=== PATIENT | female | born 1945 | race Caucasian/White ===

== ENCOUNTER → 2016-08-11 | Outpatient (CLI) | payer MEDICARE, OTHER ==
[~2016-08-11] MED LIST: ASPIRIN EC81 MG PO; CALTRATE 600 WI1 TAB PO; CENTRUM SILVER1 TAB PO; COLACE100 MG PO; ELIQUIS5 MG PO; GLUCOPHAGE1000 MG PO; IMDUR30 MG PO; IMURAN50 MG PO; IRON160 MG PO; LANTUS SOL100 UNIT/1 SUB-Q; LOPRESSOR100 MG PO; MAGNESIUM250 MG PO; NITROSTAT0.4 MG SL; NORCO 5-325 TA1 EACH PO; OXYGEN M-15 INH; PLAVIX75 MG PO; PRINIVIL (ZESTR20 MG PO; RANEXA1000 MG PO; TRADJENTA5 MG PO; TYLENOL EXTRA500 MG PO; VESICARE5 MG PO; VITAMIN C1000 MG PO; ZANTAC (NON-FO150 MG PO; ZOCOR20 MG PO; [UNRECOGNIZED DRUG - OTHER] PO
[2016-08-11 14:10] LABS: HEMATOCRIT 30.7 % (33.0-46.0); HEMOGLOBIN 9.5 g/dL (10.0-15.0); MCH 32.4 pg (27.0-34.0); MCHC 30.9 gm/dL (32.0-36.5); MCV 104.8 fl (83.0-98.0); MPV 9.1 fl (9.4-12.4); RBC 2.93 M/uL (3.50-5.50); RDW-CV 15.9 % (11.9-14.6); WBC 4.5 K/uL (4.0-11.0)
== END | disposition disaster alternative care site (69) ==
LOC: GOPD 08-10 14:00
PROVIDERS: Family Medicine
PROC: 0TB03ZX Excision of Right Kidney, Percutaneous Approach, Diagnostic (ICD-10-PCS; principal; 2016-08-11)
DX: C64.1 Malignant neoplasm of right kidney, except renal pelvis (principal); N28.89 Other specified disorders of kidney and ureter
CPT/HCPCS: J2001; J2250; J3010

== ENCOUNTER 2017-01-17 13:19 | Inpatient (IN) | payer MEDICARE, OTHER ==
[~2017-01-17] VITALS: Ht 167.6 cm; Wt 78.7 kg
--- NOTE | ~2017-01-17 | DS ---
PATIENT'S NAME: SABINA CHANG [facility] AGE: 71 Y [address] [place] [facility] [place] [address] LOCATION: [facility] [place] ADMIT DATE: 01/18/2017 Discharge Summary DISCHARGE DATE: 01/20/2017 FAMILY PHYSICIAN: Gabriel Campbell MD ATTENDING PHYSICIAN: Mercedes Boyd ADMISSION DIAGNOSES: 1. History of renal cell carcinoma, status post right laparoscopic nephrectomy. 2. Right paracaval mass. DISCHARGE DIAGNOSES: 1. History of renal cell carcinoma, status post right laparoscopic nephrectomy. 2. Right paracaval mass. PROCEDURES PERFORMED: Robotic-assisted laparoscopic excision of right paracaval mass. HOSPITAL COURSE: The patient was admitted on the above date, and underwent the above stated procedure without complication. She has a history of renal cell carcinoma, for which she underwent right hand assisted laparoscopic radical nephrectomy on November 08, 2016. On followup imaging, she was noted to have a paracaval mass with possible involvement of adrenal gland. Her hospital course was uneventful, and following surgery, her pain was well controlled and she was tolerating regular diet and having bowel function with flatus. FOLLOWUP PLAN: We will plan to see the patient back for a followup in Urology Clinic for postoperative visit, and now contact her once I have had a chance to review the results of her surgical pathology, which will guide her followup plan. MERCEDES BOYD MD GP/modl /[id number] d: 02/04/17 0409 t: 02/07/1706, DISCHARGE SUMMARY
--- NOTE | ~2017-01-17 | HP ---
PATIENT'S NAME: SABINA CHANG [facility] AGE: 71 Y [address] ROOM: [place] [address] LOCATION: [facility] [place] ADMIT DATE: 01/18/2017 History & Physical DISCHARGE DATE: FAMILY PHYSICIAN: RADHA MOSES MD ATTENDING PHYSICIAN: MERCEDES BOYD DATE OF SERVICE: 01/18/2017 CHIEF COMPLAINT AND REASON FOR ADMISSION: History of renal cell cancer with question of retained tissue with tumor remaining versus adrenal gland. HISTORY OF PRESENT ILLNESS: I saw, Sabina is a 71-year-old female in my outpatient clinic. Prior to admission at that time, she had what appeared to be UTI, so we put her on antibiotics and followup urine was checked yesterday and looked like her infection was improving and she felt better yesterday prior to admission. When I see her now, she is postop status at noon on 01/18/2017 and doing well. She is status post surgery as per Dr. Boyd, her urologist. MEDICATIONS: Reviewed. ALLERGIES: NOTED. SOCIAL HISTORY: Negative. FAMILY HISTORY: Noncontributory. IMMUNIZATIONS: Up-to-date. REVIEW OF SYSTEMS: Positive for chronic anemia, chronic colitis, chronic coronary artery disease status post recent redo bypass surgery, history of kidney cancer, diabetes mellitus type 2 and previous history of pulmonary embolus. PHYSICAL EXAMINATION: VITAL SIGNS: Per nurse's notes. Her blood pressure is 150/70 when I see, her O2 saturations normal with O2 supplement at 2 L. Her pulse is 90 and temperature is normal. HEENT: Benign. Her glasses are off. Her teeth are in good repair. PATIENT'S NAME: SABINA CHANG [facility] AGE: 71 Y [address] ROOM: [place] [address] LOCATION: [facility] [place] ADMIT DATE: 01/18/2017 History & Physical DISCHARGE DATE: FAMILY PHYSICIAN: RADHA MOSES MD ATTENDING PHYSICIAN: MERCEDES BOYD NECK: Unremarkable. HEART: She has a hyperdynamic heart exam with a grade 1/6 systolic ejection murmur heard at the right second intercostal space and apex. LUNGS: Clear anteriorly. BREASTS: Not done. ABDOMEN: Benign. Dressings present. PELVIC/RECTAL: Exam not done. EXTREMITIES: Remarkable, just a trace edema in her ankles. NEUROLOGIC: Intact. Cranial nerves intact. ASSESSMENT: 1. Residual? tumor at previous nephrectomy site left side with known diagnosis of renal cell cancer. 2. Known coronary artery disease status post coronary artery bypass graft, redo recently. 3. Colitis, stable and asymptomatic. 4. Diabetes mellitus type 2, stable. 5. Stable angina pectoris. 6. Recent urinary tract infection, treated. PLAN: We will follow daily. Further changes indicated. MD CHAZ BOURNE/christina /[id number] D: [id number] T: [id number] HISTORY & PHYSICAL
--- NOTE | ~2017-01-17 | OR ---
PATIENT'S NAME: SABINA CHANG [facility] AGE: 71 Y [address] ROOM: [place] [address] [place] [facility] [place]: 01/18/2017 OR/Procedure Report DISCHARGE DATE: FAMILY PHYSICIAN: RADHA CAMPBELL MD ATTENDING PHYSICIAN: MERCEDES BOYD SURGEON: Mercedes Boyd MD BUSINESS TEACHER: Dayron Gustafson MD. DATE OF PROCEDURE: 01/18/2017 PREOPERATIVE DIAGNOSES: 1. History of renal cell carcinoma, status post right laparoscopic nephrectomy. 2. Right paracaval mass. POSTOPERATIVE DIAGNOSES: 1. History of renal cell carcinoma, status post right laparoscopic nephrectomy. 2. Right paracaval mass. PROCEDURE: Robotic-assisted laparoscopic right excision of paracaval mass. HISTORY OF PRESENT ILLNESS: The patient is a pleasant 71-year-old female, with history of renal cell carcinoma, who underwent right hand assisted laparoscopic radical nephrectomy on November 08, 2016. On followup imaging, she was noted to have a paracaval mass with possible involvement of her right adrenal gland. The patient was explained the risks, benefits, indications, and alternatives to above procedure, wished to proceed and consented freely. ANESTHESIA ADMINISTERED: General endotracheal anesthesia. DESCRIPTION OF OPERATION: The patient was brought back to the operating room where she was placed on the OR table in the supine position. A surgical time- out was called where patient identification, surgical site, and procedure were then verified. We also did verify that the patient received IV cephalosporin antibiotic within an hour of beginning the procedure. The patient then underwent successful administration of general endotracheal anesthesia. The patient was then moved and placed in a modified right flank position. Her abdomen was then prepped and draped in usual sterile fashion. We had placed a 16-Syrian Brizuela catheter into the patient's urinary bladder and this was left to gravity drainage. I began by making a supraumbilical incision and the rectus fascia was then grasped and elevated, and then we used a Veress needle to carefully insufflate her abdomen to 15 mmHg. I then placed a 12 mm non- bladed trocar easily into the patient's abdomen. I then immediately passed a laparoscope and did not observe any injury to internal structure. She did have several adhesions noted of her ascending colon along her right lateral PATIENT'S NAME: SABINA CHANG [facility] AGE: 71 Y [address] ROOM: [id number] [place], [place] [address] [place] [facility] [place]: 01/18/2017 OR/Procedure Report DISCHARGE DATE: FAMILY PHYSICIAN: RADHA CAMPBELL MD ATTENDING PHYSICIAN: MERCEDES BOYD abdominal wall. There were otherwise no gross abnormalities noted. After taking several adhesions down following placement of a 5 mm senior agricultural assistant port just superior to my initial port site, I then placed the remaining ports including four 8 mm ports under direct visualization, which were used for the da Trevin Xi robotic device. I also placed one additional 5 mm trocar for the senior agricultural assistant. The da Trevin Xi robot was then docked and used for the remainder of the case. I began by mobilizing the ascending colon, which was swept medially. I then continued this dissection along her inferior vena cava and kocherized the duodenum. I would then begin elevating her liver, which was along her psoas muscle and this worked up the psoas muscle until I had completely freed up the liver. As we worked along this plane, along the inferior vena cava, I did come across the paracaval mass, which did appear to be involving her right adrenal gland. I then carefully identified several adrenal veins, which were taken with a laparoscopic stapling device. Several loads were used on the laparoscopic stapling device until we had completely divided all of the vasculature leading to this adrenal mass. I then continued the dissection superiorly the mass off from the liver until the mass was completely . The mass was then placed in an EndoCatch bag. I then inspected for hemostasis, which was adequate. I did place some FloSeal in the tumor resection bed. There was no evidence of any residual mass or tumor remaining. I then used a Gilberto-Raymond device to close one of the 8 mm port sites, which had been upsized to a 12 mm port to accommodate the da Trevin Xi laparoscopic stapling device. I then brought the specimen bag out through the other 12 mm port site just above her umbilicus and opened up the fascia to remove the specimen, which was sent for pathologic analysis. Her fascia was then closed using a running permanent suture. All incision sites were irrigated and infiltrated with Marcaine local anesthetic. Her skin incisions were closed using a subcuticular Monocryl suture and then covered with Dermabond. The patient was then taken out of the flank position and was then awoken from general anesthesia, where she was then extubated and transferred to recovery bed and transported to recovery room in good condition. COMPLICATIONS: None. ESTIMATED BLOOD LOSS: 100 mL. SPECIMENS: Right paracaval mass for pathologic analysis. DRAINS: Indwelling Brizuela catheter to gravity drainage. FOLLOWUP PLAN: We will plan to admit the patient overnight for observation with likely discharge home tomorrow on postoperative day #1 versus postoperative day #2 depending on her bowel function. PATIENT'S NAME: SAIBNA CHANG [facility] AGE: 71 Y [address] ROOM: [place] [address] [place] [facility] [place]: 01/18/2017 OR/Procedure Report DISCHARGE DATE: FAMILY PHYSICIAN: RADHA CAMPBELL MD ATTENDING PHYSICIAN: MERCEDES BOYD MERCEDES BOYD MD GP/modl /[id number] CC: Radha Campbell MD d: 01/18/17 2244 t: 01/20/17 1126, OPERATIVE SUMMARY
[~2017-01-17 13:19] MED LIST changes: -COLACE100 MG PO; -NORCO 5-325 TA1 EACH PO
[2017-01-18 10:35] LABS: HEMATOCRIT 32.8 % (33.0-46.0); HEMOGLOBIN 10.6 g/dL (10.0-15.0)
--- NOTE | 2017-01-18 15:33 | NUR ---
Diabetes center note: Provided the Diabetes Management booklet and Survival Skills Checklist. Encouraged patient to complete when she has time, had procedure done today, but will not know resultsfor about one week. We did discuss the affects os stress on blood sugar control, patient states understanding. Patient states she can't identify anything that she needs assistance with at this time, verbally reports her last A1C in November [address] [facility] [facility] was 5.16 %. Patient denies any difficulty obtaining her testing supplies and insulin supplies. She does report that she has lost a significant amount of weight since 2015. Will have CDE check with patient in a.m. to further assess any additional educational needs.
[2017-01-19 04:42] LABS: BASOPHIL % 0.1 %; EOSINOPHIL % 0.3 %; HEMATOCRIT 31.8 % (33.0-46.0); HEMOGLOBIN 10.2 g/dL (10.0-15.0); IMMATURE GRANULOCYTE % 0.3 %; LYMPHOCYTE % 13.6 %; MCH 32.7 pg (27.0-34.0); MCHC 32.1 gm/dL (32.0-36.5); MCV 101.9 fl (83.0-98.0); MONOCYTE # 0.4 K/uL (0.0-1.0); MONOCYTE % 6.3 %; MPV 8.9 fl (9.4-12.4); NEUTROPHIL # (ANC) 5.5 K/uL (1.8-7.8); NEUTROPHIL % 79.4 %; NRBC % 0 /100WBC (0-0.00); PLATELET COUNT 218 K/uL (150-450); RBC 3.12 M/uL (3.50-5.50); RDW-CV 17.2 % (11.9-14.6)
[2017-01-19 04:56] LABS: ANION GAP 11.1 (10.0-19.0); CALCIUM 8.5 mg/dL (8.5-10.5); CREATININE 1.3 mg/dL (0.5-1.1); POTASSIUM 4.1 mMol/L (3.7-5.1)
--- NOTE | 2017-01-19 04:56 | NUR ---
Significant Event: Resting well tonight. Afebrile, all other VSS. [place] () given x2 last at 0031 for pain. Drinking well. Brizuela catheter to DD, draining clear, dark yellow urine. Bowel sounds hypoactive to active x4 quadrants. Abdminal surgical incisions approximated, no drainage. Ambulated in halls x2 this shift with 1 min assist. PIV's x3 patent and saline locked. Pleasant and cooperative with cares. Follow up:
--- NOTE | 2017-01-19 09:26 | NUR ---
Diabetes Consult; Patient with Type II diabetes well controlled. Reviewed answers to the diabetes survival skills assessment form. No knowledge gaps identified. Patient denies any needs or concerns.
--- NOTE | 2017-01-19 17:52 | NUR ---
Significant Event: Pt has ambulated in the halls x 5 today. She rated her pain a 4 and was given norco last at 1740. She was able to void 75ml, 25ml and 300ml of concentrated yellow urine since catheter was removed. Pt lap sites are intact. Pt eating and drinking well. She has not passed flatus and has hypo active BS. Dr. Boyd was called for an update, d/t no flatus he would like to keep her tonight. Follow up: Probable dismissal tomorrow.
--- NOTE | 2017-01-20 02:34 | NUR ---
SIGNIFICANT EVENT: VSS, BP IN THE 170'S @ 2ND ASSESSMENT. NORCO Q4HRS LAST GIVEN @2200. IV TO R)FA SL AND L) FA SL. INDEPENDENT. CALLS APPROPRIATELY AND VERY COOPERATIVE WITH CARES.
[2017-01-20] MEDS ORDERED: COLACE100 MG PO (12:06)
[2017-01-20] MEDS ORDERED: NORCO 5-325 TA1 EACH PO (12:13)
--- NOTE | 2017-01-20 12:49 | NUR ---
D:Orders received for patient to be dismissed. I:Dismissal instructions were prepared and reviewed with the patient by the virtual nurse using computer technology. The following information was reviewed: diet and activity recommendations for home, incisional care for home, s/s to report to MD if they should occur, new prescription medications/home medications, and plans for follow up appointments with Dr. Elizondo and Dr. Boyd. Instructed pt on Dr. Boyd's instructions: ok to shower, no tub/pool x2 weeks, call for fever >101.5, nausea/vomiting, or any worsening condition. Shamar teaching given to and reviewed with the patient on the following topics: [place], [place], Preventing Deep Vein Thrombosis and Discharge Instructions: Caring for Your Incisions. R:The patient verbalized understanding of teaching and denied further questions at that point in time. P:The patient's primary nurse, Marlee LUTZ, was informed that the dismissal teaching had been completed. The virtual tech took the paperwork in for the patient to sign and have. The patient will be dismissed shortly. Arnie LUTZ
--- NOTE | 2017-01-20 14:04 | NUR ---
Significant Event: PT WAS AMBULATING IN THE ROOM AND PORRAS INDEPENDENTLY. VOIDING ADEQATE AMT. NORCO GIVEN FOR MILD PAIN. 7 LAP SITES INTACT AND WITHOUT REDNESS. PT WAS DISMISSED TO HOME WITH HER .
== END 2017-01-20 12:54 | disposition disaster alternative care site (69) | DRG 614 ==
LOC: GPOC 13:19 → GMSU 01-18 05:08 → EDSTATUS 01-18 11:00 → GMSU 01-18 12:28
PROVIDERS: Anesthesiology; ADMIT Urology
PROC: 0GB34ZZ Excision of Right Adrenal Gland, Percutaneous Endoscopic Approach (ICD-10-PCS; principal; 2017-01-18)
PROC: 8E0W4CZ Robotic Assisted Procedure of Trunk Region, Percutaneous Endoscopic Approach (ICD-10-PCS; principal; 2017-01-18)
PROC: 30233N1 Transfusion of Nonautologous Red Blood Cells into Peripheral Vein, Percutaneous Approach (ICD-10-PCS; principal; 2017-01-18)
DX: E27.9 Disorder of adrenal gland, unspecified (principal); N39.0 Urinary tract infection, site not specified; E11.40 Type 2 diabetes mellitus with diabetic neuropathy, unspecified; K50.90 Crohn's disease, unspecified, without complications; I10 Essential (primary) hypertension; I25.119 Atherosclerotic heart disease of native coronary artery with unspecified angina pectoris; E78.5 Hyperlipidemia, unspecified; Z95.1 Presence of aortocoronary bypass graft; N32.81 Overactive bladder; I48.91 Unspecified atrial fibrillation; Z85.528 Personal history of other malignant neoplasm of kidney; Z86.711 Personal history of pulmonary embolism; Z95.5 Presence of coronary angioplasty implant and graft; G47.30 Sleep apnea, unspecified; Z79.4 Long term (current) use of insulin; Z79.01 Long term (current) use of anticoagulants; Z79.82 Long term (current) use of aspirin; Z96.653 Presence of artificial knee joint, bilateral
CPT/HCPCS: J0690; J1100; J1940; J1956; J2001; J2270; J2405; J3010; J7030; J7500; P9016